=== PATIENT | female | born 1995 | race Caucasian/White ===

== ENCOUNTER 2020-10-02 17:38 | Emergency (ER) | payer SELFPAY ==
--- NOTE | 2020-10-02 17:58 | EDM.PDOC ---
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 She states she had a light menstrual period at the beginning of August and started bleeding again a few days ago. She reports her menstrual periods as being irregular and fluctuating in intensity. She is participating in unprotected sex and thought she could be , although has not taken any tests. Changing her pad every 3-5 hours, no pelvic pain or cramping. Has some mild nausea without vomiting. She is concerned as she also tested positive for COVID-19 a week ago. She states her COVID symptoms have improved although she does feel slightly dehydrated. Patient denies any fever, chills, headache, change in vision, syncope or near syncope. Denies any chest pain, back pain, shortness of breath or cough. Denies any abdominal pain, vomiting, diarrhea, constipation or dysuria. Has not noted any blood in urine or stool. Denies any concerns for STI's. Patient has been eating and drinking appropriately. , P:1 Review of systems: As per history of present illness and below otherwise all systems reviewed and negative. Past medical history: As per history of present illness and as reviewed below otherwise noncontributory. Surgical history: As per history of present illness and as reviewed below otherwise noncontributory. Social history: See social history for further information Family history: As per history of present illness and as reviewed below otherwise noncontributory. Physical exam: General: Well developed and well nourished. Alert and orientated x 3. Nontoxic in appearance and in no acute distress. Vital signs are stable and have been reviewed by me. Nursing notes were reviewed. HEENT: Atraumatic, normocephalic, pupils equal and reactive bilaterally, negative for conjunctival pallor or scleral icterus, mucous membranes moist, trachea midline. No drooling or trismus noted. No meningeal signs. No hot potato voice noted. Lungs: Clear to auscultation, breath sounds equal bilaterally, chest nontender. Normal work of breathing, no accessory muscles used. Heart: S1S2, regular rate and rhythm without overt murmur Abdomen: Soft, nondistended, nontender. Negative for masses or hepatosplenomegaly. Negative for costovertebral tenderness. Skin: Intact, warm, dry. No lesions or rashes noted. Hematologic: No petechiae or purpra. Mucosa appropriate color and normal nail bed color and refill. Extremities: Atraumatic, moves all extremities per self without difficulty or deficits, negative for cords or calf pain. Neurovascular unremarkable. Neuro: Awake, alert, oriented. Cranial nerves II through XII unremarkable. Cerebellum unremarkable. Motor and sensory unremarkable throughout. Exam nonfocal. Psychiatric: Mood and affect are appropriate. Normal thought process. Answering questions appropriately. Notes: Patient does have positive nitrates, urine culture has been added. Will treat with Macrobid. Lightly elevated transaminases, otherwise lab work is unremarkable. I have talked with the patient about today's findings, in addition to providing specific details for plan of care. Reassessment at the time of disposition demonstrates that the patient is in no acute distress. The patient is stable for discharge, counseling was provided and we discussed in great detail signs and symptoms that would prompt them to return to the Emergency Department. Medication, follow up and supportive care measures were reviewed and discussed. Voices understanding and is agreeable to plan of care. Denies any further questions or concerns at this time. Diagnostics: CBC, CMP, UA, HCGU, Therapeutics: IV fluids, Zofran, Macrobid Prescription: Zofran, Macrobid Impression: COVID-19 UTI Menses, irregular Plan: 1. You are not . Today your lab work was normal with the exception of a bladder infection. This will require biotics. A urine culture has been added. You may receive a phone call from the hospital if the culture shows you need a different antibiotic. Please increase your fluids. 2. Alternate Tylenol and ibuprofen as needed for pain management. 3. We encourage you to follow up with your primary care provider and/or recommended specialist in the next few days for re-evaluation and further care/management. If your symptoms should worsen, new symptoms develop or any of the signs and symptoms we discussed should arise please return to the emergency room or call 911 (if needed). Definitive disposition and diagnosis as appropriate pending reevaluation and review of above. abdomen Pain Score (Numeric/FACES): 7 - Related Data Allergies Allergy/AdvReac Type Severity Reaction Status Date / Time No Known Allergies Allergy Verified 10/02/20 17:52 Home Meds: Home Meds Nitrofurantoin Monohyd/M-Cryst [Macrobid 100 mg Capsule] 100 mg PO BID 5 Days #10 capsule 10/02/20 [Rx] Ondansetron [Zofran ODT] 4 mg PO Q6H PRN #8 tab.dis 10/02/20 [Rx] ED ROS GENERAL - Review of Systems Review Of Systems: Comprehensive ROS is negative, except as noted in HPI. ED EXAM - Physical Exam Exam: See Below (See dictation) Course - Vital Signs Last Recorded V/S: Last Vital Signs Temp 96.2 F L 10/02/20 17:52 Pulse 95 10/02/20 18:51 Resp 16 10/02/20 18:51 BP 131/80 10/02/20 18:51 Pulse Ox 95 10/02/20 18:51 - Orders/Labs/Meds Orders: Active Orders 24 hr Category Date Time Status CULTURE URINE [RM] Stat Lab 10/02/20 18:30 Received Labs: Laboratory Tests 10/02/20 10/02/20 10/02/20 Range/Units 18:30 18:30 18:30 WBC 4.15 (4.0-11.0) K/uL RBC 4.69 (4.30-5.90) M/uL Hgb 14.2 (12.0-16.0) g/dL Hct 42.8 (36.0-46.0) % MCV 91.3 (80.0-98.0) fL MCH 30.3 (27.0-32.0) pg MCHC 33.2 (31.0-37.0) g/dL RDW Std Deviation 43.9 (28.0-62.0) fl RDW Coeff of Evan 13 (11.0-15.0) % Plt Count 179 (150-400) K/uL MPV 10.60 (7.40-12.00) fL Neut % (Auto) 50.2 (48.0-80.0) % Lymph % (Auto) 41.9 H (16.0-40.0) % Borden % (Auto) 6.7 (0.0-15.0) % Eos % (Auto) 1.0 (0.0-7.0) % Baso % (Auto) 0.2 (0.0-1.5) % Neut # (Auto) 2.1 (1.4-5.7) K/uL Lymph # (Auto) 1.7 (0.6-2.4) K/uL Borden # (Auto) 0.3 (0.0-0.8) K/uL Eos # (Auto) 0.0 (0.0-0.7) K/uL Baso # (Auto) 0.0 (0.0-0.1) K/uL Nucleated RBC % 0.0 /100WBC Nucleated RBCs # 0 K/uL Sodium (136-145) mmol/L Potassium (3.5-5.1) mmol/L Chloride (98-107) mmol/L Carbon Dioxide (21.0-32.0) mmol/L BUN (7.0-18.0) mg/dL Creatinine (0.6-1.0) mg/dL Est Cr Clr Drug Dosing mL/min Estimated GFR (MDRD) ml/min Glucose (74-106) mg/dL Calcium (8.5-10.1) mg/dL Total Bilirubin (0.2-1.0) mg/dL AST (15-37) IU/L ALT (14-63) IU/L Alkaline Phosphatase (46-116) U/L Total Protein (6.4-8.2) g/dL Albumin (3.4-5.0) g/dL Globulin (2.6-4.0) g/dL Albumin/Globulin Ratio (0.9-1.6) Urine Color RED Urine Appearance CLOUDY Urine pH 5.5 (5.0-8.0) Ur Specific [place] >= 1.030 (1.001-1.035) Urine Protein 100 H (NEGATIVE) mg/dL Urine Glucose (UA) NEGATIVE (NEGATIVE) mg/dL Urine Ketones 15 H (NEGATIVE) mg/dL Urine Occult Blood LARGE H (NEGATIVE) Urine Nitrite POSITIVE H (NEGATIVE) Urine Bilirubin SMALL H (NEGATIVE) Urine Ictotest NEGATIVE Urine Urobilinogen 1.0 (<2.0) EU/dL Ur Leukocyte Esterase TRACE H (NEGATIVE) Urine RBC TOO NUMEROUS TO CT H (0-2/HPF) Urine WBC 1-3 (0-5/HPF) Ur Epithelial Cells FEW (NONE-FEW) Urine Bacteria FEW (NEGATIVE) Urine HCG, Qual NEGATIVE (NEGATIVE) 10/02/20 Range/Units 18:30 WBC (4.0-11.0) K/uL RBC (4.30-5.90) M/uL Hgb (12.0-16.0) g/dL Hct (36.0-46.0) % MCV (80.0-98.0) fL MCH (27.0-32.0) pg MCHC (31.0-37.0) g/dL RDW Std Deviation (28.0-62.0) fl RDW Coeff of Evan (11.0-15.0) % Plt Count (150-400) K/uL MPV (7.40-12.00) fL Neut % (Auto) (48.0-80.0) % Lymph % (Auto) (16.0-40.0) % Borden % (Auto) (0.0-15.0) % Eos % (Auto) (0.0-7.0) % Baso % (Auto) (0.0-1.5) % Neut # (Auto) (1.4-5.7) K/uL Lymph # (Auto) (0.6-2.4) K/uL Borden # (Auto) (0.0-0.8) K/uL Eos # (Auto) (0.0-0.7) K/uL Baso # (Auto) (0.0-0.1) K/uL Nucleated RBC % /100WBC Nucleated RBCs # K/uL Sodium 142 (136-145) mmol/L Potassium 3.7 (3.5-5.1) mmol/L Chloride 106 (98-107) mmol/L Carbon Dioxide 24.7 (21.0-32.0) mmol/L BUN 8 (7.0-18.0) mg/dL Creatinine 0.8 (0.6-1.0) mg/dL Est Cr Clr Drug Dosing 105.45 mL/min Estimated GFR (MDRD) > 60.0 ml/min Glucose 89 (74-106) mg/dL Calcium 8.8 (8.5-10.1) mg/dL Total Bilirubin 0.5 (0.2-1.0) mg/dL AST 139 H (15-37) IU/L ALT 147 H (14-63) IU/L Alkaline Phosphatase 52 (46-116) U/L Total Protein 7.1 (6.4-8.2) g/dL Albumin 3.8 (3.4-5.0) g/dL Globulin 3.3 (2.6-4.0) g/dL Albumin/Globulin Ratio 1.2 (0.9-1.6) Urine Color Urine Appearance Urine pH (5.0-8.0) Ur Specific [place] (1.001-1.035) Urine Protein (NEGATIVE) mg/dL Urine Glucose (UA) (NEGATIVE) mg/dL Urine Ketones (NEGATIVE) mg/dL Urine Occult Blood (NEGATIVE) Urine Nitrite (NEGATIVE) Urine Bilirubin (NEGATIVE) Urine Ictotest Urine Urobilinogen (<2.0) EU/dL Ur Leukocyte Esterase (NEGATIVE) Urine RBC (0-2/HPF) Urine WBC (0-5/HPF) Ur Epithelial Cells (NONE-FEW) Urine Bacteria (NEGATIVE) Urine HCG, Qual (NEGATIVE) Meds: Medications Discontinued Medications Generic Name Dose Route Start Last Admin Trade Name Freq PRN Reason Stop Dose Admin Sodium Chloride 1,000 mls @ 999 mls/hr 10/02/20 18:09 10/02/20 18:44 Normal Saline IV 10/02/20 19:09 999 mls/hr STAT ONE Administration Nitrofurantoin Macrocrystals 100 mg 10/02/20 19:11 Macrobid PO 10/02/20 19:12 ONETIME ONE Ondansetron HCl 4 mg 10/02/20 18:09 10/02/20 18:44 Zofran IVPUSH 10/02/20 18:10 4 mg ONETIME ONE Administration Departure - Departure Time of Disposition: 19:29 Disposition: Home, Self-Care 01 Clinical Impression: COVID-19, Menses, irregular UTI (urinary tract infection) Qualifiers: Urinary tract infection type: acute cystitis Hematuria presence: with hematuria Qualified Code(s): N30.01 - Acute cystitis with hematuria - Discharge Information Prescriptions: Nitrofurantoin Monohyd/M-Cryst [Macrobid 100 mg Capsule] 100 mg PO BID 5 Days #10 capsule Ondansetron [Zofran ODT] 4 mg PO Q6H PRN #8 tab.dis PRN Reason: Nausea Referrals: PCP,None [Primary Care Provider] - Forms: ED Department Discharge Additional Instructions: The following information is given to patients seen in the emergency department who are being discharged to home. This information is to outline your options for follow-up care. We provide all patients seen in our emergency department with a follow-up referral. The need for follow-up, as well as the timing and circumstances, are variable depending upon the specifics of your emergency department visit. If you don't have a primary care physician on staff, we will provide you with a referral. We always advise you to contact your personal physician following an emergency department visit to inform them of the circumstance of the visit and for follow-up with them and/or the need for any referrals to a consulting specialist. The emergency department will also refer you to a specialist when appropriate. This referral assures that you have the opportunity for follow-up care with a specialist. All of these measure are taken in an effort to provide you with optimal care, which includes your follow-up. Under all circumstances we always encourage you to contact your private physician who remains a resource for coordinating your care. When calling for follow-up care, please make the office aware that this follow-up is from your recent emergency room visit. If for any reason you are refused follow-up, please contact the [facility] Emergency Department at and asked to speak to the emergency department charge nurse. [facility] [address] [place] [id number] [address] Thank you for choosing the [facility] emergency department in [place] for your medical needs today. It was a pleasure caring for you. Today you were seen in the emergency department for vaginal bleeding. 1. You are not . Today your lab work was normal with the exception of a bladder infection. This will require biotics. A urine culture has been added. You may receive a phone call from the hospital if the culture shows you need a different antibiotic. Please increase your fluids. I have also prescribed some Zofran, for nausea. Take as directed. 2. Alternate Tylenol and ibuprofen as needed for pain management. 3. We encourage you to follow up with your primary care provider and/or recommended specialist in the next few days for re-evaluation and further care/management. If your symptoms should worsen, new symptoms develop or any of the signs and symptoms we discussed should arise please return to the emergency room or call 911 (if needed). Sepsis Event Note (ED) - Evaluation Sepsis Screening Result: No Definite Risk - Focused Exam Vital Signs: Vital Signs Temp Pulse Resp BP Pulse Ox 10/02/20 18:51 95 16 131/80 95 10/02/20 18:21 96 16 134/88 97 10/02/20 17:52 96.2 F L 101 H 16 139/103 H 96 - My Orders Last 24 Hours: My Active Orders 10/02/20 18:30 CULTURE URINE [RM] Stat - Assessment/Plan Last 24 Hours: My Active Orders 10/02/20 18:30 CULTURE URINE [RM] Stat
[2020-10-02] MEDS ORDERED: Ondansetron 4 MG/2 ML SDV IVPUSH ONE (18:09)
[2020-10-02] MEDS ORDERED: Sodium Chloride 0.9% 1,000 ML IV ONE (18:09)
[2020-10-02] MEDS ORDERED: Nitrofurantoin Monohydrate/Macrocrystalline 100 MG Cap PO ONE (19:11)
[2020-10-02 19:26] LABS: BLOOD UREA NITROGEN,BUN 8 mg/dL (7.0-18.0); CARBON DIOXIDE,CO2 24.7 mmol/L (21.0-32.0); CHLORIDE,CL 106 mmol/L (98-107); GLUCOSE RANDOM 89 mg/dL (74-106); POTASSIUM,K 3.7 mmol/L (3.5-5.1); SODIUM,NA 142 mmol/L (136-145)
== END 2020-10-02 19:45 | disposition home or self-care (01) ==
LOC: MW.ED 17:38
DX: N92.6 Irregular menstruation, unspecified (principal); U07.1 COVID-19; N30.01 Acute cystitis with hematuria
CPT/HCPCS: 36415; 80053; 81001; 81025; 85025; 87086; 87088; 87186; 96374; 99284; A9270; J2405; J7030; 99283

== ENCOUNTER 2021-04-17 12:53 | Day surgery (SDC) | payer OTHER ==
[~2021-04-17 12:53] MED LIST: Dexamethasone 4 MG/ML 5 ML MDV ONE; Lactated Ringers 1,000 ML IV SCH; Midazolam 1 MG/ML 2 ML SDV ONE; Ondansetron 4 MG/2 ML SDV ONE; Propofol 200 MG/20 ML SDV ONE; fentaNYL 250 MCG/5 ML SDV ONE
--- NOTE | 2021-04-17 13:24 | PCM.PREANE ---
Preanesthetic Assessment - Anesthesia/Transfusion/Family Hx Anesthesia History: Prior Anesthesia Without Reaction Family History of Anesthesia Reaction: No Transfusion History: No Prior Transfusion(s) - Review of Systems General: No Symptoms Pulmonary: No Symptoms Cardiovascular: No Symptoms Gastrointestinal: No Symptoms Neurological: No Symptoms Other: Reports: None - Physical Assessment NPO Status Date: 04/16/21 NPO Status Time: 12:00 Vital Signs: Last Vital Signs Temp 36.3 C 04/17/21 13:00 Pulse 86 04/17/21 13:00 Resp 15 04/17/21 13:00 BP 141/78 H 04/17/21 13:00 Pulse Ox 95 04/17/21 13:00 Height: 1.7 m Weight: 133.81 kg ASA Class: 2 Mental Status: Alert & Oriented x3 Airway Class: Mallampati = 2 Dentition: Reports: Normal Dentition ROM/Head Extension: Full Lungs: Clear to Auscultation Cardiovascular: Regular Rate - Lab Values: Laboratory Last Values WBC 8.02 K/uL (4.0-11.0) 04/17/21 13:10 RBC 4.44 M/uL (4.30-5.90) 04/17/21 13:10 Hgb 13.6 g/dL (12.0-16.0) 04/17/21 13:10 Hct 41.0 % (36.0-46.0) 04/17/21 13:10 MCV 92.3 fL (80.0-98.0) 04/17/21 13:10 MCH 30.6 pg (27.0-32.0) 04/17/21 13:10 MCHC 33.2 g/dL (31.0-37.0) 04/17/21 13:10 RDW Std Deviation 45.9 fl (28.0-62.0) 04/17/21 13:10 RDW Coeff of Evan 14 % (11.0-15.0) 04/17/21 13:10 Plt Count 280 K/uL (150-400) 04/17/21 13:10 MPV 10.80 fL (7.40-12.00) 04/17/21 13:10 Nucleated RBC % 0.0 /100WBC 04/17/21 13:10 Nucleated RBCs # 0 K/uL 04/17/21 13:10 - Allergies Allergies/Adverse Reactions: Allergies Allergy/AdvReac Type Severity Reaction Status Date / Time No Known Allergies Allergy Verified 04/16/21 09:19 - Anesthesia Plan Free Text/Narrative:: GA LMA (acid reflux only with spicy food) Pre-Op Medication Ordered: Anxiolytic - Acknowledgements Anesthesia Type Planned: General Anesthesia Pt an Appropriate Candidate for the Planned Anesthesia: Yes Alternatives and Risks of Anesthesia Discussed w Pt/Guardian: Yes Pt/Guardian Understands and Agrees with Anesthesia Plan: Yes PreAnesthesia Questionnaire HEENT History: Reports: None Cardiovascular History: Reports: None Respiratory History: Reports: None Gastrointestinal History: Reports: None Genitourinary History: Reports: None CULTURAL HISTORIAN History: Reports: Musculoskeletal History: Reports: None Neurological History: Reports: Migraines Psychiatric History: Reports: None Endocrine/Metabolic History: Reports: Obesity/BMI 30+ Hematologic History: Reports: None Immunologic History: Reports: None Oncologic (Cancer) History: Reports: None Dermatologic History: Reports: None - Infectious Disease History Infectious Disease History: Reports: Chicken Pox - Past Surgical History Head Surgeries/Procedures: Reports: None HEENT Surgical History: Reports: Tonsillectomy Cardiovascular Surgical History: Reports: None Respiratory Surgical History: Reports: None GI Surgical History: Reports: Appendectomy Female Surgical History: Reports: None Endocrine Surgical History: Reports: None Neurological Surgical History: Reports: None Musculoskeletal Surgical History: Reports: None Oncologic Surgical History: Reports: None Dermatological Surgical History: Reports: None - SUBSTANCE USE Tobacco Use Status *Q: Never Tobacco User - HOME MEDS Home Medications: Home Meds medroxyPROGESTERone Acetate [Medroxyprogesterone Acetate] 10 mg PO DAILY 04/16/21 [History] - CURRENT (IN HOUSE) MEDS Current Meds: Current Medications Lactated Ringer's (Ringers, Lactated) 1,000 mls @ 125 mls/hr IV ASDIRECTED BETY Discontinued Medications Dexamethasone (Dexamethasone 4 Mg/Ml 5 Ml Mdv) Confirm Administered Dose 20 mg .ROUTE .STK-MED ONE Stop: 04/17/21 12:30 Fentanyl (Fentanyl 250 Mcg/5 Ml Sdv) Confirm Administered Dose 250 mcg .ROUTE .STK-MED ONE Stop: 04/17/21 12:29 Lidocaine HCl (Lidocaine 1% 5 Ml Sdv) Confirm Administered Dose 5 ml .ROUTE .STK-MED ONE Stop: 04/17/21 12:30 Midazolam HCl (Midazolam 1 Mg/Ml 2 Ml Sdv) Confirm Administered Dose 2 mg .ROUTE .STK-MED ONE Stop: 04/17/21 12:28 Ondansetron HCl (Ondansetron 4 Mg/2 Ml Sdv) Confirm Administered Dose 4 mg .ROUTE .STK-MED ONE Stop: 04/17/21 12:30 Propofol (Propofol 200 Mg/20 Ml Sdv) Confirm Administered Dose 200 mg .ROUTE .STK-MED ONE Stop: 04/17/21 12:28
[2021-04-17] MEDS ORDERED: Glycopyrrolate 0.2 MG/ML SDV ONE (14:14)
[2021-04-17] MEDS ORDERED: Ketorolac 30 MG/ML SDV ONE (14:25)
[2021-04-17] MEDS ORDERED: Acetaminophen/oxyCODONE 325-5 MG Tab PO PRN (14:40)
[2021-04-17] MEDS ORDERED: Ketorolac 30 MG/ML SDV IVPUSH ONE (14:40)
--- NOTE | 2021-04-17 14:46 | PCM.OPNOTE ---
- General Post-Op/Procedure Note Date of Surgery/Procedure: 04/17/21 Operative Procedure(s): Diagnostic hysteroscopy, myosure polypectomy, dilation & curettage Findings: Anteverted uterus, sound to 10cm, multiple endometrial polyps, normal cervix Pre Op Diagnosis: 25yo with abnormal uterine bleeding due to endometrial polyps Post-Op Diagnosis: Same Anesthesia Technique: General LMA Primary Surgeon: Maria Elena Dos Santos Anesthesia Provider: Edinson Martinez Pathology: Endometrial polyps, endometrial curettings Fluid Replacement, Intraop: 800 EBL in mLs: 5 Complications: None Condition: Good Free Text/Narrative:: Hysteroscopic fluid deficit 220cc NS
[2021-04-17] MEDS ORDERED: Acetaminophen 1,000 MG in Premix Bag 1 BAG IV ONE (15:03)
--- NOTE | 2021-04-17 15:03 | PCM.POSTAN ---
POST ANESTHESIA ASSESSMENT - MENTAL STATUS Mental Status: Alert, Oriented - VITAL SIGNS Vital Signs: Last Vital Signs Temp 36.3 C 04/17/21 13:00 Pulse 86 04/17/21 13:00 Resp 15 04/17/21 13:00 BP 141/78 H 04/17/21 13:00 Pulse Ox 95 04/17/21 13:00 - RESPIRATORY Respiratory Status: Respiratory Rate WNL, Airway Patent, O2 Saturation Stable - CARDIOVASCULAR CV Status: Pulse Rate WNL, Blood Pressure Stable - GASTROINTESTINAL GI Status: No Symptoms - POST OP HYDRATION Hydration Status: Adequate & Stable
[2021-04-17] MEDS ORDERED: oxyCODONE 5 MG Tab PO ONE (15:28)
--- NOTE | 2021-04-17 16:15 | PCM48HPAN ---
Post Anesthesia Note - EVALUATION WITHIN 48HRS OF ANESTHETIC Vital Signs in Normal Range: Yes Patient Participated in Evaluation: Yes Respiratory Function Stable: Yes Airway Patent: Yes Cardiovascular Function Stable: Yes Hydration Status Stable: Yes Pain Control Satisfactory: Yes Nausea and Vomiting Control Satisfactory: Yes Mental Status Recovered: Yes Vital Signs: Last Vital Signs Temp 36.0 C L 04/17/21 15:18 Pulse 80 04/17/21 15:43 Resp 15 04/17/21 15:43 BP 152/79 H 04/17/21 15:43 Pulse Ox 94 L 04/17/21 15:43
--- NOTE | 2021-04-17 21:27 | OR ---
SURGEON: Maria Elena Dos Santos MD DATE OF PROCEDURE: 04/17/2021 PREOPERATIVE DIAGNOSIS: Abnormal uterine bleeding with endometrial polyp. POSTOPERATIVE DIAGNOSIS: Abnormal uterine bleeding with endometrial polyp. PROCEDURE: Diagnostic hysteroscopy with MyoSure polypectomy, dilation and curettage. PRIMARY SURGEON: Maria Elena Dos Santos MD ANESTHESIA: LMA. COMPLICATIONS: None. ESTIMATED BLOOD LOSS: 5 mL. FLUIDS: 800 mL LR. URINE OUTPUT: Bladder drained prior to procedure. HYSTEROSCOPIC FLUID DEFICIT: 220 mL normal saline. SPECIMEN: Endometrial polyp and endometrial curettings. FINDINGS: Normal-sized anteverted uterus. Multiple polyps amongst a bed of proliferative endometrium. DESCRIPTION OF PROCEDURE: The patient was taken to operating room where LMA was administered without difficulty. She was placed in a dorsal lithotomy position with legs in Yellofin stirrups. She was prepared and draped in normal sterile fashion. A Graves speculum was inserted into the vagina. An Allis clamp was used to grasp the anterior lip of the cervix. The uterus sounded to 10 cm. Cervical os was sequentially dilated to accommodate the 7 mm hysteroscope using Hegar dilators. A 7 mm hysteroscope was introduced under direct visualization, and the uterus was distended with normal saline. The aforementioned findings were noted. The MyoSure device was inserted into the hysteroscope and used to remove the endometrial polyps. The hysteroscope was then withdrawn. The uterus was curetted with a medium sharp curette until a gritty feeling was noted in all aspects of the uterus. The Allis clamp was removed from the cervix and good hemostasis was noted. The patient tolerated the procedure well. She was awakened and taken to the recovery room in stable condition. All instrument, needle, and sponge counts were correct x2. [id number] / MODL /[id number]
== END 2021-04-17 16:22 | disposition home or self-care (01) ==
LOC: MW.SDS 12:53
PROVIDERS: ATTEND Obstetrics & Gynecology
DX: N84.0 Polyp of corpus uteri (principal); N93.9 Abnormal uterine and vaginal bleeding, unspecified; E66.9 Obesity, unspecified; Z68.42 Body mass index [BMI] 45.0-49.9, adult
CPT/HCPCS: 36415; 58558; 84703; 85027; 88305; A9270; J0131; J1100; J2250; J2405; J2704; J3010; J3490; J7120; 00952; J1885